=== PATIENT | female | born 1975 | race Caucasian/White ===

== ENCOUNTER → 2017-07-08 | Outpatient (CLI) | payer BC ==
--- NOTE | 2017-07-08 15:33 | XR ---
EXAMINATION TYPE: XR KUB DATE OF EXAM: 07/08/2017 CLINICAL HISTORY: Right upper quadrant pressure and pain TECHNIQUE: Single supine abdominal radiograph was obtained. COMPARISON: None. FINDINGS: Scattered gas is seen in non-distended small bowel loops. Gas and fecal material is seen in non-distended colon. There is no visceromegaly, gross evidence of sizable pneumoperitoneum, or ab normal calcification appreciated. Multiple phleboliths are noted within the pelvis. The lung bases a re clear and the osseous structures are intact. There is a slight levoscoliosis of the lumbar spine. IMPRESSION: 1. Nonobstructive bowel gas pattern. 2. No radiographic evidence of nephrolithiasis.
== END | disposition home or self-care (01) ==
LOC: RADXRMAIN 14:20
PROVIDERS: ATTEND Internal Medicine
DX: R10.9 Unspecified abdominal pain (principal)
CPT/HCPCS: 74018

== ENCOUNTER → 2020-10-20 | Outpatient (CLI) | payer BC ==
--- NOTE | 2020-10-22 13:27 | MM ---
Reason for exam: screening (asymptomatic). Last mammogram was performed 9 years and 4 months ago. History: Retro-pectoral silicone gel implants in both breasts, 2006. Physical Findings: A clinical breast exam by your physician is recommended on an annual basis and results should be correlated with mammographic findings. MG 3D Screen Mammo Imp/Cad Bilateral CC, MLO, and ID view(s) were taken. Prior study comparison: June 25, 2011, CAD bilateral diagnostic mammogram. There are scattered fibroglandular densities. Bilateral implants are intact. ASSESSMENT: Negative, BI-RAD 1 RECOMMENDATION: Routine screening mammogram of both breasts in 1 year.
== END ==
LOC: RADMAMWWP 07:08
PROVIDERS: ATTEND Obstetrics & Gynecology
DX: Z12.31 Encounter for screening mammogram for malignant neoplasm of breast (principal)
CPT/HCPCS: 77063; 77067

== ENCOUNTER → 2021-10-22 | Outpatient (CLI) | payer BC ==
--- NOTE | 2021-10-22 17:24 | CT ---
EXAMINATION TYPE: CT iac wo con CT DLP: 150 mGycm, Automated exposure control for dose reduction was used. DATE OF EXAM: 10/22/2021 4:45 PM INDICATION: Patient age:Female; 46 years old; Reason for study: H91.90 HEARING LOSS H92.02 OTALGIA; COMPARISON: None . TECHNIQUE: Multiple thin axial images were obtained through the temporal bones and internal auditory canals. Additional coronal reformatted images were obtained. No IV contrast was utilized. FINDINGS: Right Temporal Bone: External Ear: The external auditory canal is unremarkable, The tympanic membrane is present and unrem arkable. Middle Ear: The ossicles demonstrate a normal appearance. Prussak's space is clear and the scutum i s intact. There is no evidence of osseous erosion and the tegmen tympani is intact. Inner Ear: Cochlea, vestibule and semi circular canals are unremarkable. No evidence of carotid constantino l dehiscence. Two and a half turns of the cochlea are identified. The vestibular aqueduct is not enl arged. Mastoid Air Cells: The mastoid air cells are clear. The tegmen mastoideum is intact. The aditus ad an trum is clear. Internal Auditory Canal: The internal auditory canal is unremarkable. Left Temporal Bone: External Ear: The external auditory canal is unremarkable, The tympanic membrane is present and unrem arkable. Middle Ear: The ossicles demonstrate a normal appearance. Prussak's space is clear and the scutum i s intact. There is no evidence of osseous erosion and the tegmen tympani is intact. Inner Ear: Cochlea, vestibule and semi circular canals are unremarkable. No evidence of carotid constantino l dehiscence. Two and a half turns of the cochlea are identified. The vestibular aqueduct is not enl arged. Mastoid Air Cells: The mastoid air cells are clear. The tegmen mastoideum is intact. The aditus ad an trum is clear. Internal Auditory Canal: The internal auditory canal is unremarkable. Other :Mild mucosal thickening in the paranasal sinuses. IMPRESSION: 1. Normal internal auditory canal study. 2. Mild paranasal sinus disease
== END | disposition home or self-care (01) ==
LOC: RADCTMAIN 16:29
PROVIDERS: ATTEND Otolaryngology
DX: H93.90 Unspecified disorder of ear, unspecified ear (principal); H92.02 Otalgia, left ear
CPT/HCPCS: 70480